=== PATIENT | male | born 1990 | race Caucasian/White ===

== ENCOUNTER 2017-11-05 14:26 | Emergency (ER) | payer OTHER ==
[2017-11-05 14:31] VITALS: BP 117/65
--- NOTE | 2017-11-05 14:36 | EDPHY ---
H & P Stated Complaint: Left foot pain x 2 months "Splinter". Time Seen by Provider: 11/05/17 14:35 HPI/ROS: HPI: This is a 27-year-old male who presents with Chief Complaint: Left foot pain x 2 months "Splinter". Location: Left foot Quality: Pain Duration: 2 months Signs and Symptoms: No bleeding, no radiation, no numbness, no weakness, no tingling, no incontinence, no decreased range of motion, no swelling, no pain, no fever Timin months Severity: Waxes and wane Context: Patient reports that he feels like he has a rock in his shoe for the last 2 months. He noted an area of hardened skin and questions whether he has a foreign body present. Denies any erythema/redness/drainage/paresthesias/ weakness/decreased range of motion. He has tried no [id number] pain medication. No history of diabetes mellitus. No PCP. Modifying Factors: None Comment: ROS: see HPI Constitutional: No fever, no chills, no weight loss Eyes: No blurred vision Respiratory: No shortness of breath, no cough Cardiovascular: No chest pain Gastrointestinal: No nausea, no vomiting no diarrhea Genitourinary: No dysuria Extremities: No myalgias Neurologic: No weakness, no numbness Skin: No rashes Hematologic: No bruising, no bleeding MEDICAL/SURGICAL/SOCIAL HISTORY: Medical history: depression, ADHD, schizophrenia. Surgical history: Denies Social history: Employed. Family history noncontributory. CONSTITUTIONAL: Extremely well-appearing young adult white male, awake and alert, no obvious distress HEENT: Atraumatic and normocephalic. Cardiovascular: Normal S1/S2, regular rate, regular rhythm, without murmur rub or gallop. PULMONARY/CHEST: Symmetrical and nontender. no crepitus. Clear to auscultation bilaterally. Good air movement. No accessory muscle usage. ABDOMEN: Soft, nondistended, nontender, no ecchymosis. EXTREMITIES: 2/2 pulses, strength 5/5, left Ankle: Plantar flexion to 50, dorsiflexion to 20. Foot inversion to 35 degree. No tenderness/swelling Anterior talofibular ligament. No tenderness/swelling Calcaneofibular ligament , no tenderness/swelling posterior talofibular ligament, no tenderness/swelling posterior inferior tibiofibular ligament. Achilles tendon intact. Sole of foot and arch shows small 3 mm callus; no fluctuance/erythema/drainage. DIP/PIP/MCP flexion/extension intact with good light touch sensation. no deformities, no clubbing, no cyanosis or edema. NEUROLOGICAL: no focal neuro deficits. GCS 15. Light touch sensation intact. SKIN: Warm and dry, no erythema. no rash. Good capillary refill. Source: Patient Exam Limitations: No limitations - Personal History Current Tetanus Diphtheria and Acellular Pertussis (TDAP): Yes - Medical/Surgical History Hx Asthma: No Hx Chronic Respiratory Disease: No Hx Diabetes: No Hx Cardiac Disease: No Hx Renal Disease: No Hx Cirrhosis: No Hx Alcoholism: No Hx HIV/AIDS: No Hx Splenectomy or Spleen Trauma: No Other PMH: depression, ADHD, schizophrenia. - Social History Smoking Status: Former smoker Constitutional: Initial Vital Signs Temperature (C) 36.6 C 11/05/17 14:27 Heart Rate 81 11/05/17 14:27 Respiratory Rate 16 11/05/17 14:27 Blood Pressure 117/65 11/05/17 14:27 O2 Sat (%) 95 11/05/17 14:27 O2 Delivery Mode Room Air Allergies/Adverse Reactions: No Known Allergies Allergy (Verified 12/15/12 20:29) Home Medications: Medication Instructions Recorded LORazepam [Ativan (*)] 0.5 - 1 mg PO Q4H PRN #30 tab 10/22/15 Medical Decision Making ED Course/Re-evaluation: Left foot x-ray ordered; my read no foreign body/fracture/significant degenerative changes No area of fluctuance to I and D No foreign body appreciated Small area of callus noted; advised supportive care and podiatry follow-up No signs of neurovascular compromise/tenting of skin/compartment syndrome/ extremities and joints examined above and below area of concern and are neurovascularly intact/gouty arthropathy/tendinitis/septic arthritis/plantar fasciitis. This patient was seen under the supervision of my secondary supervising physician. I evaluated care for this patient independently. Discussed this patient with Dr. Barrett who did not see the patient. Differential Diagnosis: Differential diagnosis includes but is not limited to bursitis, tendonitis, foreign body, cellulitis, abscess, pes planus. Departure - Departure Disposition: Home, Routine, Self-Care Clinical Impression: Chronic pain in left foot Condition: Good Instructions: Soft Tissue Foreign Body (ED) Additional Instructions: X-ray today shows no signs of acute fracture/dislocation/foreign body. Use bunion pad around area of concern to distribute weight decreased pain. Use pumice stone to remove the skin from the area of concern. Take Tylenol 650 mg every 4 hr and/or ibuprofen 600 mg with food every 8 hr as needed for pain. Follow-up with Podiatry for further evaluation. Referrals: Poncho Goldman MD [Doctor of Podiatric Medicine] - As per Instructions
== END 2017-11-05 15:39 | disposition home or self-care (01) ==
DX: M79.672 Pain in left foot (principal); G89.29 Other chronic pain; Z87.891 Personal history of nicotine dependence